=== PATIENT | female | born 1955 | race Two or more races ===

== ENCOUNTER → 2018-12-19 | Outpatient (CLI) | payer BC ==
--- NOTE | 2018-12-24 14:28 | WOMENS IMAGING REPORT ---
EXAM DESCRIPTION: BILAT SCREENING MAMMO W/CAD COMPLETED DATE/TIME: 12/19/2018 2:45 pm REASON FOR STUDY: Z12.31 ROUTINE BILATERAL [id number] ENCNTR SCREEN MAMMOGRAM FOR MALIGNANT NE OPLASM OF NA COMPARISON: 2011 outside facility. EXAM PARAMETERS: Standard craniocaudal and mediolateral oblique views of each breast recorded using digital acquisition. Read with the assistance of CAD. LIMITATIONS: None. FINDINGS: RIGHT BREAST MASSES: No suspicious masses. CALCIFICATIONS: No new or suspicious calcifications. ARCHITECTURAL DISTORTION: None. DEVELOPING DENSITY: Developing density in the tail seen on the MLO view only. ASYMMETRY: None noted. OTHER: No other significant findings. LEFT BREAST MASSES: No suspicious masses. CALCIFICATIONS: No new or suspicious calcifications. ARCHITECTURAL DISTORTION: None. DEVELOPING DENSITY: None. ASYMMETRY: None noted. OTHER: No other significant findings. IMPRESSION: Developing density right breast. Assessment: 0 Incomplete: Needs Additional Imaging Evaluation and/or prior Mammograms for Comparison. BREAST DENSITY: b. There are scattered areas of fibroglandular density. BIRAD: 0 Incomplete: Needs Additional Imaging Evaluation and/or prior Mammograms for Comparison. RECOMMENDATION: RECOMMENDED FOLLOW-UP: True lateral, exaggerated CC, cone compression views and pote ntial ultrasound right breast. The patient will be contacted for additional imaging. COMMENT: The patient has been notified of the results by letter per MQSA requirements. Additional no tification policies are in place for contacting patient with suspicious or incomplete findings. Quality ID #225: The [employer] recommends an annual screening mammogram for women aged 40 years or over. This facility utilizes a reminder system to ensure that all patients receive reminder letters, and/or direct phone calls for appointments. This includes reminders for routine scr eening mammograms, diagnostic mammograms, or other Breast Imaging Interventions when appropriate. Th is patient will be placed in the appropriate reminder system. TECHNICAL DOCUMENTATION: FINDING NUMBER: (1) ASSESSMENT: (1) JOB ID: [id number] [employer]- All Rights Reserved Reading location - IP/workstation name: [email or web address]
== END ==
LOC: WI 13:56
PROVIDERS: ATTEND Nurse Practitioner Family
DX: Z12.31 Encounter for screening mammogram for malignant neoplasm of breast (principal); R92.2 Inconclusive mammogram
CPT/HCPCS: 77067

== ENCOUNTER → 2019-02-04 | Outpatient (CLI) | payer BC ==
--- NOTE | 2019-02-05 07:37 | WOMENS IMAGING REPORT ---
EXAM DESCRIPTION: RIGHT DIAGNOSTIC MAMMO W/CAD; U/S BREAST UNILAT LIMITED COMPLETED DATE/TIME: 02/04/2019 11:09 am; 02/04/2019 11:41 am REASON FOR STUDY: N63.31 UNSPECIFIED LUMP IN AXILLARY TAIL OF THE RIGHT BREAST; RT BREAST DENSITY N6 3.31 UNSPECIFIED LUMP IN AXILLARY TAIL OF THE RIGHT BREAST COMPARISON: Mammograms 12/19/2018, 10/04/2010 EXAM PARAMETERS: Cone compression mediolateral oblique, right whole breast exaggerated craniocaudad and 90 mediolateral images of the breast recorded with digital acquisition. Right breast ultrasound was also performed. Read with the assistance of CAD. [facility] - [employer] Panel [employer] Setter Version 9.2 LIMITATIONS: None. FINDINGS: BREAST LATERALITY: right MASSES: A 4 mm intramammary lymph node is present projected over the right pectoralis muscle on the M LO cone compression view. CALCIFICATIONS: No new or suspicious calcifications. ARCHITECTURAL DISTORTION: None. DEVELOPING DENSITY: None. ASYMMETRY: None noted. OTHER: No other significant findings. Right breast ultrasound: A 4 mm intramammary lymph node is present in the far upper outer quadrant. This correlates with mamm ographic findings from 12/19/2018. This is a benign finding which requires no further specific follow up. IMPRESSION: No mammographic or sonographic evidence for malignancy right breast BREAST DENSITY: b. There are scattered areas of fibroglandular density. BIRAD: ASSESSMENT: 2 Benign findings. RECOMMENDATION: RECOMMENDED FOLLOW UP: Please continue yearly bilateral screening mammography in November 2019 SPECIFIC INTERVENTION/IMAGING/CONSULTATION RECOMMENDED:Please continue yearly bilateral screening donovan mography in November 2019 COMMUNICATION:Patient notified by letter COMMENT: The patient has been notified of the results by letter per MQSA requirements. Additional no tification policies are in place for contacting patient with suspicious or incomplete findings. Quality ID #225: The [employer] recommends an annual screening mammogram for women aged 40 years or over. This facility utilizes a reminder system to ensure that all patients receive reminder letters, and/or direct phone calls for appointments. This includes reminders for routine scr eening mammograms, diagnostic mammograms, or other Breast Imaging Interventions when appropriate. Th is patient will be placed in the appropriate reminder system. TECHNICAL DOCUMENTATION: FINDING NUMBER: (1) ASSESSMENT: (1) JOB ID: [id number] [employer]- All Rights Reserved Reading location - IP/workstation name: [email or web address]
--- NOTE | 2019-02-05 07:37 | WOMENS IMAGING REPORT ---
EXAM DESCRIPTION: RIGHT DIAGNOSTIC MAMMO W/CAD; U/S BREAST UNILAT LIMITED COMPLETED DATE/TIME: 02/04/2019 11:09 am; 02/04/2019 11:41 am REASON FOR STUDY: N63.31 UNSPECIFIED LUMP IN AXILLARY TAIL OF THE RIGHT BREAST; RT BREAST DENSITY N6 3.31 UNSPECIFIED LUMP IN AXILLARY TAIL OF THE RIGHT BREAST COMPARISON: Mammograms 12/19/2018, 10/04/2010 EXAM PARAMETERS: Cone compression mediolateral oblique, right whole breast exaggerated craniocaudad and 90 mediolateral images of the breast recorded with digital acquisition. Right breast ultrasound was also performed. Read with the assistance of CAD. .[facility] - [employer] Version 9.2 LIMITATIONS: None. FINDINGS: BREAST LATERALITY: right MASSES: A 4 mm intramammary lymph node is present projected over the right pectoralis muscle on the M LO cone compression view. CALCIFICATIONS: No new or suspicious calcifications. ARCHITECTURAL DISTORTION: None. DEVELOPING DENSITY: None. ASYMMETRY: None noted. OTHER: No other significant findings. Right breast ultrasound: A 4 mm intramammary lymph node is present in the far upper outer quadrant. This correlates with mamm ographic findings from 12/19/2018. This is a benign finding which requires no further specific follow up. IMPRESSION: No mammographic or sonographic evidence for malignancy right breast BREAST DENSITY: b. There are scattered areas of fibroglandular density. BIRAD: ASSESSMENT: 2 Benign findings. RECOMMENDATION: RECOMMENDED FOLLOW UP: Please continue yearly bilateral screening mammography in November 2019 SPECIFIC INTERVENTION/IMAGING/CONSULTATION RECOMMENDED:Please continue yearly bilateral screening donovan mography in November 2019 COMMUNICATION:Patient notified by letter COMMENT: The patient has been notified of the results by letter per MQSA requirements. Additional no tification policies are in place for contacting patient with suspicious or incomplete findings. Quality ID #225: The [employer] recommends an annual screening mammogram for women aged 40 years or over. This facility utilizes a reminder system to ensure that all patients receive reminder letters, and/or direct phone calls for appointments. This includes reminders for routine scr eening mammograms, diagnostic mammograms, or other Breast Imaging Interventions when appropriate. Th is patient will be placed in the appropriate reminder system. TECHNICAL DOCUMENTATION: FINDING NUMBER: (1) ASSESSMENT: (1) JOB ID: [id number] [employer]- All Rights Reserved Reading location - IP/workstation name: [email or web address]
== END ==
LOC: WI 10:50
PROVIDERS: ATTEND Nurse Practitioner Family
DX: N63.31 Unspecified lump in axillary tail of the right breast (principal)
CPT/HCPCS: 76642